=== PATIENT | male | born 1985 | race Caucasian/White ===

== ENCOUNTER 2025-02-15 13:25 | Emergency (ER) | payer OTHER ==
[~2025-02-15] VITALS: Wt 73.0 kg
[2025-02-15] MEDS ORDERED: Tdap Vaccine 0.5 ML SYR (Adult Vaccine) IM ONE (14:35)
[2025-02-15] MEDS ORDERED: CEPHALEXIN 500 MG CAP PO ONE (14:35)
[2025-02-15] MEDS ORDERED: Bacitracin Zinc 14 GM TUBE T ONE (14:35)
[2025-02-15] MEDS ORDERED: Lidocaine Hydrochloride 2% 10 ML AMP SC ONE (14:35)
[2025-02-15] MEDS ORDERED: CEPHALEXIN500 M1 PO (15:22)
== END 2025-02-15 15:39 | disposition home or self-care (01) ==
LOC: ED 13:25
DX: S61.511A Laceration without foreign body of right wrist, initial encounter (principal); W20.8XXA Other cause of strike by thrown, projected or falling object, initial encounter; Y93.89 Activity, other specified; Y92.89 Other specified places as the place of occurrence of the external cause; Y99.8 Other external cause status